=== PATIENT | female | born 1965 | race Hispanic/Latino ===

== ENCOUNTER 2018-02-25 16:42 | Outpatient (CLI) | payer OTHER ==
--- NOTE | 2018-02-25 17:36 | RAD ---
FRONTAL AND LATERAL RADIOGRAPH RIGHT TIBIA AND FIBULA: 02/25/18 COMPARISON: None. HISTORY: Tripped over a piece of wood one week ago, not on distal lower leg with swelling and pain. FINDINGS: There is a focal area of soft tissue swelling anterior and medial to the mid/distal right tibial shaf t. No radiopaque foreign body or subcutaneous gas is noted. No associated fracture or evidence of dis location. IMPRESSION: Focal soft tissue swelling with no fracture or dislocation. POS: [facility]
== END 2018-02-25 16:43 | disposition home or self-care (01) ==
LOC: MADLAB 16:42
PROVIDERS: ATTEND Family Medicine
DX: M79.661 Pain in right lower leg (principal); M79.89 Other specified soft tissue disorders

== ENCOUNTER 2022-06-09 10:52 | Outpatient (CLI) | payer OTHER ==
[2022-06-09 11:14] LABS: Eosinophils 2 % (0-10); Hemoglobin 14.3 g/dL (12.0-16.0); Lymphocytes 31 % (21-51); MDiff Complete? YES; Mean Corpuscular HGB CONC 33.6 g/dL (32.0-36.0); Mean Corpuscular Hemoglobin 30.6 pg (27.0-31.0); Mean Corpuscular Volume 91.3 fL (78.0-98.0); Mean Platelet Volume 7.8 fL (7.4-10.4); Monocytes 8 % (0-10); Neutrophil 59 % (42-75); Platelet Count 251 thou/uL (130-400); RBC Distribution Width 11.1 % (11.5-14.5); Red Blood Cell (RBC) Count 4.66 mill/uL (4.20-5.40); White Blood Cell (WBC) Count 6.1 thou/uL (4.8-10.8)
[2022-06-09 11:21] LABS: ALT (SGPT) 26 U/L (8-55); AST (SGOT) 20 U/L (5-34); Albumin 4.4 g/dL (3.5-5.0); Alkaline Phosphatase 103 U/L (40-110); Anion Gap 13 mmol/L (10-20); BUN (Urea Nitrogen) 12 mg/dL (9.8-20.1); Bilirubin, Total 0.8 mg/dL (0.2-1.2); Calc. Creatinine Clearance 0 mL/min (70-130); Calcium 9.3 mg/dL (7.8-10.44); Carbon Dioxide 26 mmol/L (22-29); Cardiac Risk 4.5 (Less than 4.5); Chloride 107 mmol/L (98-107); Cholesterol 225 mg/dl (< 200 Desired); Estimated GFR 92; Globulin 2.7 g/dL (2.4-3.5); Glucose 90 mg/dL (70-105); HDL Cholesterol 50 mg/dL (>60 Neg Risk); LDL Cholesterol, Calculated 141 mg/dL; Potassium 4.2 mmol/L (3.5-5.1); Protein, Total 7.1 g/dL (6.0-8.3); Sodium 142 mmol/L (136-145); Triglycerides 169 mg/dL (Less than 150)
[2022-06-09 16:27] LABS: HIV (1/2) Antibody/Antigen Non-Reactive (NonReactive); HIV 1/2 INDEX 0.18 S/CO (<1.00); Vitamin D, 25 Hydroxy 16.3 ng/ml (> 30.0)
== END 2022-06-09 10:53 | disposition home or self-care (01) ==
LOC: MADLAB 10:52
PROVIDERS: ATTEND Family Medicine
DX: Z01.419 Encounter for gynecological examination (general) (routine) without abnormal findings (principal)
CPT/HCPCS: 36415; 80053; 80061; 82306; 83036; 84443; 85025; 87389

== ENCOUNTER 2023-01-30 10:29 | Outpatient (CLI) | payer OTHER | END 2023-01-30 10:30 | disposition home or self-care (01) | LOC: MADRAD 10:29 | PROVIDERS: ATTEND Internal Medicine | DX: J45.41 Moderate persistent asthma with (acute) exacerbation (principal) | CPT/HCPCS: 70220; 71046 ==